=== PATIENT | female | born 1985 | race Caucasian/White ===

== ENCOUNTER 2021-10-04 13:42 | Emergency (ER) | payer OTHER ==
[~2021-10-04] VITALS: Ht 160 cm; Wt 58.6 kg
[2021-10-04 13:55] VITALS: BP 108/70
[2021-10-04] MEDS ORDERED: INFED50 MG/ML IJ (13:56)
[2021-10-04] MEDS ORDERED: FOLIC ACID1 M1 PO (13:56)
[2021-10-04] MEDS ORDERED: ALL DAY10 MG PO (14:08)
[2021-10-04] MEDS ORDERED: DECADRON4 MG PO (14:08)
== END 2021-10-04 14:30 | disposition home or self-care (01) ==
LOC: ED 13:42
DX: L27.1 Localized skin eruption due to drugs and medicaments taken internally (principal); T45.4X5A Adverse effect of iron and its compounds, initial encounter; F17.210 Nicotine dependence, cigarettes, uncomplicated